=== PATIENT | female | born 1985 | race Caucasian/White ===

== ENCOUNTER 2023-05-05 09:00 | Outpatient (NON) | payer OTHER, SELFPAY | END 2023-05-05 09:01 | disposition home or self-care (01) | PROVIDERS: PCP Family Medicine; Visit Provider Obstetrics & Gynecology | DX: N93.9 Abnormal uterine and vaginal bleeding, unspecified (principal) | CPT/HCPCS: 88305 ==

== ENCOUNTER → 2023-05-07 12:29 | Outpatient (CLI) | payer OTHER, SELFPAY ==
--- NOTE | ~2023-05-07 | MM_ITS ---
EXAMINATION: MM scrn diana implant BI w brenda HISTORY: Screening mammogram TECHNIQUE: Craniocaudal and mediolateral oblique 3-D tomosynthesis images with implant displacement a nd synthetic 2-D images were generated. Craniocaudal and mediolateral oblique views of the breasts wi thout implant displacement were obtained using full field digital mammography. CAD analysis was submi tted and interpreted. COMPARISON: No prior mammogram is available for comparison at this institution. BREAST PARENCHYMAL COMPOSITION: The breasts are extremely dense, which lowers the sensitivity of mamm ography. FINDINGS: Status post bilateral augmentation mammoplasty. There is no evidence of suspicious mass, ca lcification, or architectural distortion to suggest malignancy in either breast. There has been no hamm spicious interval change. IMPRESSION: 1. No mammographic evidence of malignancy. 2. Recommend routine screening mammography in one year. Close correlation with physical examination i s imperative due to the very dense fibroglandular stroma which may obscure masses. Consider supplemen serina screening ultrasound as clinically appropriate. BI-RADS Category 1: Negative Reviewed, dictated and finalized at location A. IMPRESSION: 1. No mammographic evidence of malignancy. 2. Recommend routine screening mammography in one year. Close correlation with physical examination is imperative due to the very dense fibroglandular stroma which may obscure masses. Consider supplemental screening ultrasound as clinica lly appropriate. BI-RADS Category 1: Negative
== END ==
PROVIDERS: PCP Family Medicine; Visit Provider Family Medicine
DX: Z12.31 Encounter for screening mammogram for malignant neoplasm of breast (principal)
CPT/HCPCS: 77063; 77067

== ENCOUNTER 2023-08-20 12:22 | Outpatient (CLI) | payer OTHER, SELFPAY ==
[2023-08-20 13:06] LABS: Hematocrit 39.3 % (37.0-47.0)
== END 2023-08-20 12:23 | disposition home or self-care (01) ==
LOC: ANHSURGERY 12:26
PROVIDERS: PCP Family Medicine; Visit Provider Obstetrics & Gynecology
DX: Z01.818 Encounter for other preprocedural examination (principal); N93.9 Abnormal uterine and vaginal bleeding, unspecified
CPT/HCPCS: 36415; 85014; 85018

== ENCOUNTER 2023-08-28 00:52 | Day surgery (SDC) | payer OTHER, SELFPAY ==
[2023-08-19 15:56] VITALS: BMI 18.9
--- NOTE | 2023-08-19 16:01 | PC.NURSE ---
Report to the Outpatient Waiting Room, entrance under the green pavilion located off [facility], at time _0900_ on date _[id number]_. Planned Procedure Time: _1100_. Time changes happen often and if your time is changed the preop area will call you the afternoon before. - You and your visitor will be asked to self-screen and do not enter if you have any COVID symptoms. - A mask is optional within the hospital at this time. Patients may have clear liquids (water, carbonated beverages, clear teas, apple juice) until 3 hours prior to surgery with a maximum of 20 ounces. - No food from midnight until time of surgery Take the following medications with a SIP of water the morning of surgery: ____None DO NOT STOP ANY OF YOUR OTHER PRESCRIPTION MEDICATIONS PRIOR TO SURGERY ?EXCEPT THE FOLLOWING Medications to discontinue per physician Multivitamin Date to take last nmrc__[phone] Please no make-up, nail tristanian, hairspray, perfume, deodorant, or body powder the day of surgery. No jewelry (including any body piercings) or valuables the day of surgery, leave them at home. Please take a shower or bath the night before, or the morning of, surgery with an antibacterial soap. Wear comfortable, loose fitting clothing. - Jewelry must be removed prior to entering the operating room. Rings and piercings that are not removed may be cut off. - The hospital will not accept responsibility for valuables. - Please leave all valuables, including medications, at home the day of surgery. If you are going home after surgery, a licensed concrete mixing truck driver must drive you home. - NO public transportation without another adult if you receive anesthesia. - We recommend that an adult stay with you for 24 hours following discharge. - We also recommend that you do not drive, make important decision, drink alcoholic beverages, or take any drugs that were not prescribed by your health care provider for at least 24 hours after your discharge time. Follow any additional instructions given to you from your surgeon. If you or anyone in your household have experienced Covid symptoms in the past week, please notify your surgeon or the nurse liaison at the phone number below for possible testing. Telephone instructions given to __Patient___and asked if any additional questions and then verbalized understanding. Patient advised to call surgeon office or pre surgery nurse liaison [phone] if any additional questions.
--- NOTE | 2023-08-26 07:34 | P.HP_ITS ---
H&P: HPI History of Present Illness Date/Time: 08/26/23 07:34 Chief Complaint: Excessive heavy bleeding Narrative: S a 38-year-old female 2 para 2 who is admitted for hysteroscopy dilatation curettage and ablation. Send ultrasound shows no abnormalities home she continues to bleed heavily she would like to discuss with go forward with the hysteroscopy D&C and ablation. She understands this is not a form of control the. Risks and benefits of this procedure reviewed including but not exclusive of , aspiration pneumonia, bleeding, transfusion, perforation injury to bowel, bladder, ureters, or other internal organs with the need for open laparotomy. She received the ACOG handout entitled hysteroscopy and dilatation curettage respectively. She received the handout on Ramona. All qu estions were answered to her satisfaction. She asked to proceed [facility] Surgical History Surgical History H/O breast augmentation H/O exploratory laparotomy Family History Family History Mother Diabetes mellitus Grandparent Hypolipidemia Social History Social History Smoking status: Never smoker Alcohol intake: current Drinks per week: 1 Substance use: never Substance use type: does not use Living arrangements: with family Spiritual care concerns: No Meds Home Medications and Allergies Home Medications Medication Instructions Recorded Confirmed Type multivitamin 1 tablet PO DAILY 06/06/20 08/19/23 History Allergies Allergy/AdvReac Type Severity Reaction Status Date / Time No Known Allergies Allergy Verified 08/19/23 15:54 Exam Const: General: cooperative, healthy appearing and comfortable Nutritional Appearance: average body habitus Orientation/consciousness: oriented to person, oriented to place and oriented to time Resp: Effort & Inspection: normal respiratory effort Cardio: Rate: regular rate Rhythm: regular rhythm Heart sounds: S1 normal heart sound present and S2 normal heart sound present GI: Inspection: normal to inspection : External Female Exam: normal external appearance Speculum Exam - Vagina: normal appearance of the vagina Speculum Exam - Cervix: normal appearance of the cervix Bimanual exam- vagina & uterus: non-tender Bimanual Exam- Adnexa, other: normal adnexae Assessment and Plan Assessment and plan (1) Vaginal bleeding: Code(s): N93.9 - Abnormal uterine and vaginal bleeding, unspecified Status: Acute Plan Hysteroscopy/dilatation curettage/Ramona ablation
--- NOTE | 2023-08-28 06:31 | WPDHPUPDATE1 ---
History and Physical Update Update Date/Time: 08/28/23 06:31 History and Physical has been reviewed, including an updated exam of the patient. There are NO changes in the patient's condition. Risks, benefits, and alternatives have been discussed and questions answered. Patient agrees to proceed with procedure.
[2023-08-28] MEDS: ACETAMINOPHEN 500 MG TABLET 1000 MG PO (09:30)
--- NOTE | 2023-08-28 09:36 | P.PNAN_ITS ---
Anes - Initial Pre Proc Eval Procedure: Operation Date: 08/28/23 11:00 Proposed Procedures p Hysteroscopy, Dilation and Curettage, Ramona Endometrial Ablation - Manoj Portillo MD Date/Time: 08/28/23 09:36 Surgeon: Manoj Portillo MD Pre Op Diagnosis: excessive bleeding Patient Data Age: 38 Gender: F Height: 1.63 m Weight: 50 kg Allergies Allergy/AdvReac Type Severity Reaction Status Date / Time No Known Allergies Allergy Verified 08/28/23 09:24 Home Medications Medication Instructions Recorded Confirmed Type multivitamin 1 tablet PO DAILY 06/06/20 08/28/23 History hydrocodone 5 mg-acetaminophen 325 1 tablet PO Q4H PRN pain #14 tabs 08/28/23 Rx mg tablet Patient hx anesthesia problems: none Family hx anesthesia problems: none Results Review: All pre-operative results and documents have been reviewed as part of the pre- operative evaluation. [facility] Surgical History Surgical History (Updated 08/28/23 @ 09:36 by Manoj Verduzco MD) H/O breast augmentation H/O exploratory laparotomy History of D&C Family History Family History Mother Diabetes mellitus Grandparent Hypolipidemia Social History Social History Smoking status: Never smoker Alcohol intake: current Drinks per week: 1 Substance use: never Substance use type: does not use Living arrangements: with family Spiritual care concerns: No Anes - Eval Final PreProcedure Day of Procedure 08/28/23 09:36 Patient weight: normal Heart: regular rate and rhythm Lungs: clear to auscultation Airway: Mallampati scale class II Neurological: alert and oriented Last oral intake: >/= 8 hours ASA classification: I Emergent: no Anesthetic plan: proceed Anesthesia type and monitoring: general GIVS and standard monitoring Results Review: All pre-operative results and documents have been reviewed as part of the pre- operative evaluation. Informed Consent: The patient's anesthetic plan and its attendant risks and benefits were discussed with the patient/family/POA. Questions were solicited and answers provided to the satisfaction of the patient/family/POA.
[2023-08-28] MEDS: LACTATED RINGERS 1,000 ML 30 ML IV CONT (09:44)
[2023-08-28 09:45] VITALS: BP 111/78; PULSE 71; RESP 16; TEMP 37.1; O2SAT 100
[2023-08-28] MEDS: SCOPOLAMINE 1.5 MG PATCH TRANSDERM (09:48)
[2023-08-28] MEDS: KETOROLAC 30 MG/ML VIAL (*BKC) IV PUSH (10:37)
[2023-08-28] MEDS: LIDOCAINE HCL 1% LOCAL INJ 20 ML VIAL 10 ML INFILTRATE (10:42)
--- NOTE | 2023-08-28 10:50 | W.PM.PROC2 ---
Procedure Note - Detailed Date of Procedure 08/28/23 Pre-op Diagnosis excessive bleeding Post-op Diagnosis Same Procedure Performed Hysteroscopy/dilatation curettage/Ramona ablation Surgeon Manoj Portillo MD Anesthesia MAC and Local Indications Is a 38-year-old female with excessive heavy bleeding refractory to medical therapy Findings Uterus sounded 9cm. Thick endometrial tissue was seen. Each fallopian tube os could be seen was within limits. Description of Procedure Patient was prepped draped in the normal sterile fashion placed in the dorsal position. Under excellent IV sedation weighted speculum placed posterior. Anterior lip of the cervix grasped with single-tooth 2 5cc% xylocaine anesthesia placed at 2:48 a.m. 10 cervix. Uterus sounded to9.5cm. Serial dilatation with fragmented dilators performed followed by passage of a V-hysteroscope. Normal saline was used as visualizing medium. Thick endometrial tissue was seen. Each fallopian tube os could be seen but no definitive abnormality seen uterus was then scraped over the entire 360? until a good grating sound was heard. The instruments were withdrawn and the Ramona instrument placed at the appropriate depth. This was burned for 120seconds. The instruments removed the patient worked tolerated the procedure well. Blood loss estimated 5cc. All sponge, needle, instrument counts were correct. Estimated Blood Loss 5 Drains No Packing No Pathology Yes Complications No immediate complications Condition Stable Disposition PACU
[2023-08-28 10:53] VITALS: BP 95/57; PULSE 68; RESP 16; O2SAT 100
[2023-08-28 11:00] VITALS: BP 102/61; PULSE 70; RESP 16
[2023-08-28 11:14] VITALS: BP 116/75; PULSE 60; RESP 16; O2SAT 100
[2023-08-28 11:30] VITALS: BP 103/63; PULSE 65; RESP 16
== END 2023-08-28 11:35 | disposition home or self-care (01) ==
PROVIDERS: PCP Family Medicine; Visit Provider Obstetrics & Gynecology
PROC: 0U5B8ZZ Destruction of Endometrium, Via Natural or Artificial Opening Endoscopic (ICD-10-PCS; CPT 58563; principal; 2023-08-28 11:00)
DX: N93.9 Abnormal uterine and vaginal bleeding, unspecified (principal)
CPT/HCPCS: 58563; 36415; 85014; 85018; 88305; A9270; J1885; J2250; J2405; J2704; J3010; J7120

== ENCOUNTER 2024-07-08 12:50 | Outpatient (CLI) | payer OTHER, SELFPAY ==
--- NOTE | ~2024-07-08 | MM_ITS ---
EXAMINATION: MM scrn diana implant BI w brenda HISTORY: Screening mammogram TECHNIQUE: Craniocaudal and mediolateral oblique 3-D tomosynthesis images with implant displacement a nd synthetic 2-D images were generated. Craniocaudal and mediolateral oblique views of the breasts wi thout implant displacement were obtained using full field digital mammography. CAD analysis was submi tted and interpreted. COMPARISON: 05/07/2023 BREAST PARENCHYMAL COMPOSITION: Dense: The breasts are extremely dense, which lowers the sensitivity of mammography. FINDINGS: There is no evidence of suspicious mass, calcification, or architectural distortion to sugg est malignancy in either breast. There has been no suspicious interval change. IMPRESSION: 1. No mammographic evidence of malignancy. 2. Recommend routine screening mammography in one year. BI-RADS Category 1: Negative Reviewed, dictated and finalized at location B.
== END 2024-07-08 12:51 ==
LOC: MICIMG 12:50
PROVIDERS: PCP Family Medicine; Visit Provider Family Medicine
DX: Z12.31 Encounter for screening mammogram for malignant neoplasm of breast (principal)
CPT/HCPCS: 77063; 77067

== ENCOUNTER 2025-07-27 08:33 | Outpatient (CLI) | payer OTHER, SELFPAY ==
--- NOTE | ~2025-07-27 | MM_ITS ---
EXAMINATION: MM scrn diana implant BI w brenda HISTORY: Screening TECHNIQUE: Craniocaudal and mediolateral oblique 3-D tomosynthesis images were obtained and synthetic 2-D images were generated. CAD analysis was submitted and interpreted. Implant displacement views were obtained. COMPARISON: Mammograms from 07/08/2024 and 05/07/2023 BREAST PARENCHYMAL COMPOSITION: The breasts are extremely dense, which lowers the sensitivity of mammography. FINDINGS: There is no evidence of suspicious mass, calcification, or architectural distortion to suggest malignancy. There has been no suspicious interval change. Grossly stable bilateral breast implants. IMPRESSION: 1. No mammographic evidence of malignancy. Recommend routine screening mammography in one year. BI-RADS Category 2: Benign finding(s) Reviewed, dictated and finalized at location Q. IMPRESSION: 1. No mammographic evidence of malignancy. Recommend routine screening mammogra phy in one year. BI-RADS Category 2: Benign finding(s)
--- OUTSIDE RECORDS SUMMARY | 2025-07-27 08:39 | XMS_ITS | Patient Health Record ---
Author Organization [facility] Address [address] [place], [place] [id number] Support Name Relationship Address Phone JOESPH MCGOVERN Emergency Contact Unknown ANDRES MCGOVERN Guarantor Unknown [phone] Reason For Referral No Information Plan Of Treatment No Information Insurance Providers Payer Name Payer Address Payer Phone Subscriber Number Group Number Insured Name Patient Relationship to Insured Coverage Start Date Coverage End Date [facility] [address] [address] [place] [address] [id number] JOESPH MCGOVERN Spouse - patient is the spouse of the insured
--- OUTSIDE RECORDS SUMMARY | 2025-07-27 08:39 | XMS_ITS | Clinical Summary ---
Author Organization [facility] [place] Address [address] [place] [address] Phone Care Team Providers Care Planing Machine Operator Name Role Phone Sharon Quintero DO Primary Care Provider Allergies No known active allergies Medications multivitamin (DAILY-[place]) tablet Take 1 Tablet by mouth daily. Active escitalopram oxalate (LEXAPRO) 20 mg tabletIndications:A nxiety state Take 1 Tablet (20 mg) by mouth daily Take 1/2 tab for 1 week then increase to full tablet. 90 Tablet 9 Active traZODone (DESYREL) 50 mg tabletIndications:I nsomnia, unspecified type Take 1 Tablet (50 mg) by mouth nightly as needed for Insomnia. 30 Tablet 9 Active neomycin-polymyxin- hydrocortisone (CORTISPORIN) 3.5-10,000-10 mg-unit-mg/mL suspensionIndicatio ns:Unspecified conjunctivitis Instill 2 Drops into affected eye(s) every 4 hours. 7.5 mL 01/27/2020 9:43 AM FRONT OFFICE MEDICAL ASSISTANT 0 Active meloxicam (MOBIC) 15 mg tablet Take 1 Tablet (15 mg) by mouth daily. 30 Tablet 3 07/15/2022 6:01 PM CDT 2 Active HYDROcodone-acetami nophen (NORCO) 5-325 mg tablet Take 1 Tablet by mouth every 4 hours as needed. Max Daily Amount: 6 Tablets 18 Tablet 03/13/2023 1:09 PM CDT 3 Active HYDROcodone-acetami nophen (NORCO) 5-325 mg tablet Take 1 tablet by mouth every 8 hours as needed for pain 9 Tablet 03/08/2025 10:50 AM CDT 5 Active lidocaine-prilocain e (EMLA) 2.5-2.5 % Cream Apply 3 times daily to perianal area 30 Gram 1 03/08/2025 10:50 AM CDT 5 Active Active Problems Problem Noted Date Diagnosed Date Positive AMAURI (antinuclear antibody) 07/01/2021 Overview (07/01/2021): Seen by [facility] rheum jun 2021 (Emily Pereira MD ); Will fup every 6mo. Bilateral tinnitus 03/07/2020 Overview (03/07/2020): F/b Dr. Thompson Fasciculations 12/21/2019 Overview (07/23/2021): eval'd by dr evans at [facility]. 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 Acne 12/25/2011 Encounters Date Type Department Care Team Description 06/27/2025 External Device Data [facility] ABSTRACTION Provider, Abstract 06/07/2025 External Device Data [facility] ABSTRACTION Provider, Abstract 06/07/2025 External Device Data [facility] ABSTRACTION Provider, Abstract 05/09/2025 External Device Data [facility] ABSTRACTION Provider, Abstract from Last 3 Months Immunizations Immunization Administration Dates Next Due (ADACEL/BOOSTRIX)(10 YR UP) TDAP VACCINE, 0.5ML, IM 03/24/2017,09/21/2014,12/25/2011,11/23 (PFIZER)(12 YR UP) COVID-19 VACCINE - EMERGENCY USE AUTHORIZATION, MRNA, [id number]) 30 MCG/0.3 ML IM SUSP 12/01/2020,11/09/2020 INFLUENZA VACCINE QUADRIVALE NT 3 YR UP PF IM 08/19/2016,08/07/2015,08/27/2014 Influenza Seasonal Unspecifi ed Formulation IM 08/24/2024,08/25/2023,08/26/2022,08/01,08/19/2020,08/19/2019,08/07/2018 ,07/24/2018,08/22/2017,08/18/2013,07/25,08/18/2011 08/18/2012 Family History Medical History Relation Name Comments Healthy Father Healthy Mother Other Sister ptsd Relation Name Status Comments Father Alive Mother Alive Sister Alive Social History Tobacco Use Types Packs/Day Years Used Date Smoking Tobacco: Never Smokeless Tobacco: Never Alcohol Use Standard Drinks/Week Comments No 0 (1 standard drink = 0.6 oz pur e alcohol) Comments No Sex and Gender Information Value Date Recorded Sex Assigned at Not on file Legal Sex Female 5:57 AM FRONT OFFICE MEDICAL ASSISTANT Gender Identity Not on file Sexual Orientation Not on file Occupation Industry Job Start Date Job End Date Not on file Not on file Not on file Not on file Last Filed Vital Signs Vital Sign Reading Time Taken Comments Blood Pressure 98/64 06/16/2019 10:46 AM CDT Pulse 74 06/16/2019 10:46 AM CDT Temperature 36.7 C (98.1 F) 06/16/2019 10:46 AM CDT Respiratory Rate 16 06/16/2019 10:46 AM CDT Oxygen Saturation 99% 06/16/2019 10:46 AM CDT Inhaled Oxygen Concentration - - Weight 50.8 kg (112 lb) 06/16/2019 10:46 AM CDT Height 164.5 cm (5' 4.75) 06/16/2019 10:46 AM C DT Body Mass Index 18.78 06/16/2019 10:46 AM CDT Plan of Treatment Health Maintenance Due Date Last Done Comments HEPATITIS B VACCINES (1 of 3 - 19+ 3-dose series) 2002 HPV VACCINES (2 - 3-dose SCD M series) 08/15/2020 07/18/2020 PAP SMEAR 08/25/2021 08/25/2018, 10/0 01/2018, 07/10/2017, Additional history exists BREAST CANCER SCREENING 2023 CERVICAL CANCER SCREENING 08/25/2023 HPV/Cotest (21-29) 08/25/2023 08/25/2018, 0 07/10/2017, 10/31/2016, Additional history exists HPV/Cotest (30-65) 08/25/2023 08/25/2018, 0 07/10/2017, 10/31/2016, Additional history exists INFLUENZA VACCINE (#1) 2025 4, 08/25/2023, 08/26/2022, Additional history exists COVID-19 Vaccine (3 - 2024-2 6 season) 2025 12/01/2020, 11/09/2020 DTAP/TDAP/TD VACCINES (5 - T d or Tdap) 03/24/2027 03/24/2017, 09/21/2014, 12/25/2011, Additional history exists Medical Devices Implanted Type Area Manual Tester Device Identifier Shelf Expiration Date Model / Serial / Lot Sealant Floseal W/ Adptr 10ml [id number] - [id number] Implanted:Qt y: 1 on 07/19/2016 by Octavio Cole MD at [facility] Sealant N/A: Abdomen [employer] [id number] 10/22/2017 [id number] / / [id number] Procedures Procedure Name Priority Date/Time Associated Diagnosis Comments HPV HIGH RISK DETECTION Routine 08/25/2018 1:59 PM CDT Pap smear, low-risk CERV/VAG CYTO AGE BASED SCREEN PAP Routine 08/25/2018 1:59 PM CDT Pap smear, low-risk from Last 3 Months or Most Recently Relevant to Health Maintenance Results * HPV HIGH RISK DETECTION (08/25/2018 1:59 PM CDT) HPV E6/E7 Not Detected Not Detected 09/01/2018 9:20 AM CDT [facility] Comment: This test was performed using the APTIMA HPV Assay ([employer] This assay detects E6/E7 viral messenger RNA (mRNA) from 14 high-risk HPV types (16,18,31,33,35,39,45,51,52,56,58,59,66,68). The analytical performance characteristics of this assay have been determined by [facility]. The modifications have not been cleared or approved by the FDA. This assay has been validated pursuant to the CLIA regulations and is used for clinical purposes. Genital SWAB OF ENDOCERVIX / Unknown Collection / Unknown 08/25/2018 1:59 PM CDT 08/25/2018 9:24 PM CDT Narrative [facility] - 09/01/2018 9:20 AM CDT Performing Organization Information: Site ID: [place] Name: [facility] Address: [address] [place] [address] Director: Charles Cerrato D.O., MPH us Michelle Banegas MD PATHOLOGY/CYTOLOGY ORDERABLE S Final Result Performing Organization Address City/State/[facility] Co de Phone Number [facility] * CERV/VAG CYTO AGE BASED SCREEN PAP (08/25/2018 1:59 PM CDT) COMMENT (PAP): SEE COMMENT 8 9:20 AM CDT [facility] Comment: This order for age-based cervical cancer and STI screening follows ACOG guidelines(PB 168, 140, CDD686). See individual assays for performing site location. Genital SWAB OF ENDOCERVIX / Unknown Collection / Unknown 08/25/2018 1:59 PM CDT 08/25/2018 9:24 PM CDT Narrative [facility] - 09/01/2018 9:20 AM CDT Performing Organization Information: Site ID: [place] Name: [facility] Address: [address] [place] [address] Director: Charles Cerrato D.O., MPH us Michelle Banegas MD PATHOLOGY/CYTOLOGY ORDERABLE S Final Result [facility] from Last 3 Months or Most Recently Relevant to Health Maintenance Insurance [facility] OPTIONS PPO [id number] RX [employer] RX [employer]KS PLANS (INTERNAL) [facility] RX [employer]ANS (INTERNAL) [facility] Advance Directives For more information, please contact: [phone] * Full Code (Latest Code Status on File) Date Activated Date Inactivated Comments 05/22/2017 6:41 PM 05/24/2017 2:31 PM * Full Code Date Activated Date Inactivated Comments 05/22/2017 8:44 AM 05/22/2017 6:41 PM * Full Code Date Activated Date Inactivated Comments 10/31/2014 3:16 PM 11/02/2014 1:10 PM * Full Code Date Activated Date Inactivated Comments 10/31/2014 8:19 AM 10/31/2014 3:16 PM Care Teams Planing Machine Operator Relationship Specialty Start Date End Date Sharon Quintero DO PCP - General Internal Medicine 01/14/13
--- OUTSIDE RECORDS SUMMARY | 2025-07-27 08:39 | XMS_ITS | Clinical Summary ---
Author Organization [facility] Address [address] [place] [address] Care Team Providers Care Assistant Professor Of Music Name Role Phone Unavailable Primary Care Provider Unavailabl e Source Comments [facility],non-owned Affiliates and Associated Physician Practices is amultiple site organization consisting of ambulatory clinics and hospital sitesin [place], [place], [place]. This disclosure is being madepursuant to the Care Everywhere program and may not contain all information available regarding this patient. Last updated 18.[facility] Social History Tobacco Use Types Packs/Day Years Used Date Smoking Tobacco: Never Assessed Comments Unknown Sex and Gender Information Value Date Recorded Sex Assigned at Not on file Legal Sex Female 3:41 PM CDT Gender Identity Not on file Sexual Orientation Not on file Plan of Treatment Health Maintenance Due Date Last Done Comments LIPID TESTING 1983 MAMMOGRAM 1983 HIV SCREENING 1998 HEPATITIS C SCREENING 12/28/2000 DTAP/TDAP/TD VACCINES (1 - Tdap) 2002 HEPATITIS B VACCINE (1 of 3 - 19+ 3-dose series) 2002 PAP SMEAR 2004 HPV VACCINE (1 - 3-dose SCDM series) 2010 COVID-19 VACCINE ( - 2023- season) 2024 DEPRESSION SCREENING 11/23/2024 INFLUENZA VACCINE (#1) 2025 8, 07/24/2018, 08/22/2017, Additional history exists ZOSTER VACCINE (1 of 2) 2033 HIB VACCINE Aged Out No longer eligi ble based on patient's age to complete this topic MENINGOCOCCAL (Group B) VACCINE SHARED DECISION-MAKING Aged Out No longer eligible based on patient's age to complete this topic MENINGOCOCCAL GROUPS A/C/Y/W VACCINE Aged Out No longer eligible based on patient's age to complete this topic PNEUMOCOCCAL VACCINE Aged Out No long er eligible based on patient's age to complete this topic Insurance [facility] * Guarantor: Andres Babb Account Type Relation to Patient Date of Phone Billing Address Personal/Family Spouse [address] [facility] [address] [place] [phone] [facility] * Guarantor: ANDRES BABB Account Type Relation to Patient Date of Phone Billing Address Personal/Family Spouse [address] [facility] [place] [phone] [facility]
--- OUTSIDE RECORDS SUMMARY | 2025-07-27 08:39 | XMS_ITS | Clinical Summary ---
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 Mariel Babb is not up to date on screening tests. She is in need of hepatitis C and B screening and Cholesterol screening. She is not up to date on needed preventative vaccinations; She is in need of Covid-19 (booster). We discussed healthy lifestyle habits, educational material has been given. Medications reviewed, changes documented as per the medical record and discussed with patient along with risks vs benefits. Return in 1 year Assessment & Plan (02/24/2023 9:19 AM CDT): A(n) yearly well adult visit has been performed today. Mariel Babb is not up to date on screening tests. She is in need of Breast cancer screening and Cholesterol screening. She is up to date on needed preventative vaccinations. We discussed healthy lifestyle habits, educational material has been given. Medications reviewed, changes documented as per the medical record and discussed with patient along with risks vs benefits. 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 Mariel Babb is up to date on screening tests. She is in need of None- no screening indicated at this time- these have been ordered. She is not up to date on needed preventative vaccinations; She is in need of Covid-19 (booster). These have been ordered/arranged unless otherwise indicated. Will see back for formal, in-person exam in 1 month Labs as ordered Positive AMAURI (antinuclear antibody) 07/01/2021 Overview (01/09/2022): Seen by [facility] rheum jun 2021 (Emily Pereira MD ); Will fup every 6mo. Paresthesia of skin 06/11/2021 Assessment & Plan (06/11/2021 10:55 AM CDT): Has new symptoms of transient paresthesias in arms and constant vibration sensation in right arm not associated with visible muscle twitching. Exam remains normal Possible small fiber neuropathy given multiple transient sensory changes and muscle symptoms, although also possible she has BFS as previously discussed and positional nerve compression during sleep (as symptoms have only occurred during sleep). She asks about M.S. and I reviewed that her symptoms lasting minutes would not be typical of M.S. and her exam is normal which is reassuring. Given bilateral arm symptoms out of sleep, could consider Cspine imaging, but would only pursue this if symptoms worsening/more frequent or new symptom. Given fasciculations, which would not be an M.S. symptoms, I suggested proceeding with EMG/NCS to complete evaluation given her continued concerns for more serious etiology. Will also check lab work for causes of small fiber neuropathy. I discussed that medications like gabapentin could be used to manage symptoms, although given she has not had symptoms in several weeks, will hold treatment unless worsening/more problematic. RTC in 3 months to reassess Bilateral tinnitus 03/07/2020 Overview (01/09/2022): F/b Dr. 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 CK/Aldolase previously normal, would like to proceed with EMG/NCS to rule out concerning findings/cause. Assessment & Plan (12/21/2019 10:04 AM EXHAUST EMISSIONS INSPECTOR): Have been occurring less frequently in last few months, still notices a few times daily but nothing like the 30-40 times daily in past. No new symptoms. Exam unchanged, again provided reassurance. She asks about need for indefinite buspar and I told her it could be reasonable to wean and see if this is something that she no longer needs or is something she might benefit from at least continued short term use. She is happy to return as needed in future if change and will call if concern. Assessment & Plan (09/21/2019 8:33 AM CDT): 34 year old woman who presents with fasciculations that have been going on to various severity for 4 months. They are less than they had been but remain generalized and fairly frequent. Her neurologic examination is normal and I reassured her she had no signs of ALS, which had been her fear. She is also concerned this is a sign she is going 'crazy' but does not feel anxious (other than related to medical concerns these symptoms have caused). I did explained benign fasciculations and that this is separate from anxiety disorder (although stress and anxiety can certainly influence). I reviewed additional testing, including muscle enzyme testing and EMG/NCS as potential options. At this time, she is comfortable proceeding with CK/aldolase and holding EMG/NCS unless symptoms worsen/new symptoms develop. In the interim, she has already eliminated caffeine and I encouraged her to increase fluid intake and exercise. She has been on buspar about 1 month which she does feel has potentially helped some. I suggested she continue this for the time being but if she is comfortable things are stable/less severe at follow up in a few months, would likely suggest she try eliminating this given lack of other problematic anxiety. 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 Acne 12/25/2011 Resolved Problems Problem Noted Date Diagnosed Date Resolved Date Normal labor 05/22/2017 01/09/2022 Hemoperitoneum 07/19/2016 01/09/2022 Encounters Date Type Department Care Team Description 05/11/2025 Results Follow-Up [facility] at [address] [phone] Nabil Chacon MD CBC with auto differential, Comprehensive metabolic panel, Lipid panel, Additional followed-up results: 3 04/28/2025 8:15 AM CDT Lab [facility] at [address] [phone] Screening for lipoid disorders [Z13.220] (Primary Dx); Screening for thyroid disorder [Z13.29]; Routine general medical examination at a health care facility [Z00.00] 04/28/2025 8:11 AM CDT - 04/28/2025 11:59 [place] [address] Well adult exam; Screening, lipid; Screening for thyroid disorder Discharge Disposition: Discharge to home or self care 04/27/2025 2:30 PM CDT Office Visit [facility] at [address] [phone] Nabil Chacon MD Well adult exam (Primary Dx); Screening for thyroid disorder; Screening, lipid from Last 3 Months Immunizations Immunization Administration Dates Next Due HPV, Quadrivalent 07/18/2020 HPV9 01/22/2021 Influenza, Quadrivalent, Spl it, Preservative Free, Intramuscular 08/19/2016,08/07/2015,08/27/2014 Influenza, Trivalent, IM (MDV) 3,08/26/2022,08/01/2021,08/19,08/19/2019,08/07/2018,07/24/2018 ,08/22/2017,08/18/2013,08/17/2012,07/25 Influenza, Unspecified 08/17/2022,08/12/2021 Pfizer SARS-CoV-2 Monovalent Vaccination (12+ Yrs) PURPLE 12/01/2020,11/09/2020 Tdap 03/24/2017, 4,12/25/2011,11/23 Surgical History Surgery Date Site/Laterality Comments LAPAROSCOPY 11/23/2015 - 11/22/2016 exploratory abdominal AUGMENTATION MAMMOPLASTY 01/21/2019 - 02/20/2019 Bilatera l Silicone breast implants LASIK 11/23/2002 - 11/22/2003 Bilateral BREAST SURGERY 01/2019 COLONOSCOPY 2010 Medical History Medical History Date Comments Rosacea In vitro fertilization x2 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 board assembler (2021) Holliday's neuroma of right foot Family History Medical History Relation Name Comments Coronary artery disease Father estr anged Diabetes Maternal Grandfather Grandfather Heart disease Maternal Grandfather Grandfather Diabetes Maternal Grandmother Jaquez Lupus Maternal Grandmother Jaquez Diabetes Mother Dorothea Obesity Mother Dorothea Heart disease Mother's Brother Jonathon and michael No Known Problems Paternal Grandfather Lupus Paternal Grandmother Depression Sister Belinda Diabetes Sister Belinda Drug abuse Sister Belinda Lupus Sister Belinda Substance Abuse Sister Belinda Relation Name Status Comments Father Alive Maternal Grandfather Grandfather Maternal Grandmother Jaquez Mother Dorothea Alive Mother's Brother Cielo Paternal Grandfather Paternal Grandmother Sister Belinda Alive Social History Tobacco Use Types Packs/Day Years Used Date Smoking Tobacco: Never Smokeless Tobacco: Never Tobacco Cessation:Counseling Given: Not Answered Alcohol Use Standard Drinks/Week Comments Yes 0 (1 standard drink = 0.6 oz pur e alcohol) AUDIT-C Answer Date Recorded Q1: How often do you have a drink containing alc ohol? 2-3 times a week 02/24/2023 Q2: How many drinks containi ng alcohol do you have on a typical day when you are drinking? 1 or 2 02/24/2023 Q3: How often do you have si x or more drinks on one occasion? Less than monthly 02/24/2023 PHQ-2 Answer Date Recorded PHQ-2 Total Score (If total score is 3 or more points, staff should administer the PHQ-9) 0 04/27/2025 Exercise Vital Sign Answer Date Recorde d On average, how many days pe r week do you engage in moderate to strenuous exercise (like a brisk walk)? 4 days 01/09/2022 On average, how many minutes do you engage in exercise at this level? 40 min 01/09/2022 Education Answer Date Recorded What is the highest level of school you have completed or the highest degree you have received? 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 file 01/25/2025 Not on file Obstetrics History Last Filed Vital Signs Vital Sign Reading Time Taken Comments Blood Pressure 122/72 04/27/2025 2:17 PM CDT Pulse 77 04/27/2025 2:17 PM CDT Temperature 36.6 C (97.8 F) 04/27/2025 2:17 PM CDT Respiratory Rate 18 04/27/2025 2:17 PM CDT Oxygen Saturation 99% 04/27/2025 2:17 PM CDT Inhaled Oxygen Concentration - - Weight 54 kg (119 lb) 04/27/2025 2:17 PM CDT Height 162.6 cm (5' 4) 04/27/2025 2:17 PM CDT Body Mass Index 20.43 04/27/2025 2:17 PM CDT Plan of Treatment Health Maintenance Due Date Last Done Comments Cervical Cancer Screening 08/25/2019 08/25/2018 HPV Vaccines (3 - 3-dose SCDM series) 04/16/2021 01/22/2021, 07/18/2020 Breast Cancer Screening-Mammogram 07/08/2025 07/08/2024 Influenza Vaccine (#1) 2025 , 08/23/2024, 08/25/2023, Additional history exists Covid-19 Vaccine ( season) 2026 12/01/2020, 11/09/2020 Postponed from 07/24/2024 (Patient declined, but will receive in the future) Depression Screening 04/27/2026 04/27/2025, 03/02/2024, 02/24/2023, Additional history exists Regular Well Visit/Exam 18-64 04/27/2026 04/27/2025, 03/02/2024, 02/24/2023, Additional history exists DTaP/Tdap/Td Vaccine (5 - Td or Tdap) 03/24/2027 03/24/2017, 09/21/2014, 12/25/2011, Additional history exists Hepatitis B Screening Completed 03/02/2024 Hepatitis C Screening Completed 03/02/2024 Pneumococcal vaccine <65 Aged Out No longer eligible based on patient's age to complete this topic Varicella Vaccines Discontinued Procedures Procedure Name Priority Date/Time Associated Diagnosis Comments EGFR Routine 04/28/2025 8:11 AM CDT Well adult exam DIFFERENTIAL AUTO Routine 04/28/2025 8:1 1 AM CDT Well adult exam THYROID FUNCTION CASCADE Routine 04/28/2025 8:11 AM CDT Screening for thyroid disorder LIPID PANEL Routine 04/28/2025 8:11 AM CDT Screening, lipid COMPREHENSIVE METABOLIC PANEL Routine 04/28/2025 8:11 AM CDT Well adult exam CBC WITH AUTO DIFFERENTIAL Routine 04/28/2025 8:11 AM CDT Well adult exam HM MAMMOGRAPHY Routine 07/08/2024 2:11 PM CDT HEPATITIS C ANTIBODY Routine 03/02/2024 12:00 AM CDT Need for hepatitis C screening test HM PAP SMEAR WITH HPV Routine 08/25/2018 from Last 3 Months or Most Recently Relevant to Health Maintenance Results * eGFR (04/28/2025 8:11 AM CDT) eGFR >90 >=60 mL/min/1. 73 m2 Comment: Interpretive Data Reference Interval Normal >/= 90 mL/min/1.73m2 Mildly decreased* 60 - 89 mL/min/1.73m2 Mildly to moderately decreased 45 - 59 mL/min/1.73m2 Moderately to severely decreased 30 - 44 mL/min/1.73m2 Severely decreased 15 - 29 mL/min/1.73m2 Kidney Failure < 15 mL/min/1.73m2 *Relative to young adult level Estimated glomerular filtration rate is determined by the 2020 CKD-EPI equation recommended by the National Kidney Foundation (A Unifying Approach to GFR Estimation: Recommendations of the NKF-ASK Task Force on Reassessing the Inclusion of Race in Diagnosing Kidney Disease, JASN 2020). The CKD-EPI equation should not be used for patients with unstable renal function and has not been validated in children and those over 70. Current interpretive data was last reviewed 2021. Blood 04/28/2025 8:11 AM CDT 04/28/2025 3:18 PM CDT us Nabil Chacon MD LAB BLOOD ORDERABLES Final Result [facility] [address] Department [place] [address] * Differential, auto (04/28/2025 8:11 AM CDT) Neutrophil abs 2.60 1.50 - 6.50 K/cumm Imm gran abs 0.01 0.00 - 0.10 K/cumm [facility] Lymphocyte abs 1.62 0.80 - 3.30 K/cumm [facility] Monocyte abs 0.41 0.20 - 0.80 K/cumm [facility] Eosinophil abs 0.04 0.00 - 0.50 K/cumm [facility] Basophil abs 0.03 0.00 - 0.10 K/cumm [facility] Neutrophil pct 55.3 % [facility] Comment: Interpretive Data Percent cell count reference ranges are not reported, since discordance with absolute values may lead to misinterpretation of CBC data. Current Interpretive Data was last revised on 2018. Imm gran pct 0.2 % [facility] Comment: Interpretive Data Percent cell count reference ranges are not reported, since discordance with absolute values may lead to misinterpretation of CBC data. Current Interpretive Data was last revised on 2018. Lymphocyte pct 34.4 % [facility] Comment: Interpretive Data Percent cell count reference ranges are not reported, since discordance with absolute values may lead to misinterpretation of CBC data. Current Interpretive Data was last revised on 2018. Monocyte pct 8.7 % [facility] Comment: Interpretive Data Percent cell count reference ranges are not reported, since discordance with absolute values may lead to misinterpretation of CBC data. Current Interpretive Data was last revised on 2018. Eosinophil pct 0.8 % [facility] Comment: Interpretive Data Percent cell count reference ranges are not reported, since discordance with absolute values may lead to misinterpretation of CBC data. Current Interpretive Data was last revised on 2018. Basophil pct 0.6 % [facility] Comment: Interpretive Data Percent cell count reference ranges are not reported, since discordance with absolute values may lead to misinterpretation of CBC data. Current Interpretive Data was last revised on 2018. Blood 04/28/2025 8:11 AM CDT 04/28/2025 2:48 PM CDT us Nabil Chacon MD LAB BLOOD ORDERABLES Final Result [facility] [address] Department of Laboratories [place], [place] [id number] * Thyroid Function [place] (04/28/2025 8:11 AM CDT) TSH 3.33 0.30 - 4.20 mcIUnit/mL Blood 04/28/2025 8:11 AM CDT 04/28/2025 2:48 PM CDT Nabil Chacon MD LAB BLOOD ORDERABLES Final Result Performing Organization Address City/[facility]/ZIP Co de Phone Number [facility] [address] Department of [employer] [place] [address] * (ABNORMAL) CBC with auto differential (04/28/2025 8:11 AM CDT) WBC 4.71 3.80 - 9.90 K/cumm Hgb 12.9 11.9 - 15.5 g/dL [facility] Hct 40.0 35.6 - 45.5 % [facility] Plt 235 150 - 400 K/cumm [facility] MPV 12.0 9.1 - 12.3 fL [facility] RBC 4.10 3.90 - 5.20 M/cumm [facility] MCV 97.6(H) 81.3 - 96.4 fL [facility] MCH 31.5 27.1 - 33.3 pg [facility] MCHC 32.3 32.3 - 35.7 g/dL [facility] RDW CV 11.9 11.1 - 14.9 % [facility] RDW SD 43.1 35.7 - 48.1 fL [facility] NRBC abs 0.00 0.00 - 0.01 K/cumm [facility] Blood 04/28/2025 8:11 AM CDT 04/28/2025 2:48 PM CDT Nabil Chacon MD LAB BLOOD ORDERABLES Final Result [facility] [address] Department of [employer] [place] [address] * Lipid panel (04/28/2025 8:11 AM CDT) Cholesterol 179 30 - 199 mg/dL Comment: Interpretive Data Ages < or = 19 years Acceptable: <170 mg/dL Borderline high: 170-199 mg/dL High: >or= 200 mg/dL Ages > or = 20 years Desirable: <200 mg/dL Borderline high: 200-239 mg/dL High: >or= 240 mg/dL Literature References: 1. Expert Panel on Integrated Guidelines for Cardiovascular Health and Risk Reduction in Children and Adolescents. Pediatrics 2011;128:S213 2. NCEP Expert Panel. Circulation 2004;110:227 Current Interpretive Data was last revised on 2018. Triglycerides 53 <=149 mg/dL [facility] Comment: Interpretive Data Ages < or = 9 years Acceptable: <75 mg/dL Borderline high: 75-99 mg/dL High: >or= 100 mg/dL Ages 10 to 20 years Acceptable: <90 mg/dL Borderline high: 90-129 mg/dL High: >or= 130 mg/dL Ages > or = 20 years Desirable: <150 mg/dL Borderline high: 150-199 mg/dL High: 200-499 mg/dL Very high: >or= 499 mg/dL Literature References: 1. Expert Panel on Integrated Guidelines for Cardiovascular Health and Risk Reduction in Children and Adolescents. Pediatrics 2011;128:S213 2. NCEP Expert Panel. Circulation 2004;110:227 Current Interpretive Data was last revised on 2018. HDL 76 >=40 mg/dL [facility] Comment: Interpretive Data Ages < or = 19 years Acceptable: >45 mg/dL Borderline low: 40-45 mg/dL Low: <40 mg/dL Ages > or = 20 years Desirable: >or= 60 mg/dL Low: <40 mg/dL Literature References: 1. Expert Panel on Integrated Guidelines for Cardiovascular Health and Risk Reduction in Children and Adolescents. Pediatrics 2011;128:S213 2. NCEP Expert Panel. Circulation 2003;110:227 Current Interpretive Data was last revised on 2018. LDL, calculated 93 <=129 mg/dL [facility] Comment: Interpretive Data Ages < or = 19 years Acceptable: <110 mg/dL Borderline high: 110-129 mg/dL High: >or= 130 mg/dL Ages > or = 20 years Optimal: <100 mg/dL Near optimal: 100-129 mg/dL Borderline high: 130-159 mg/dL High: >160 mg/dL Calculated using the Wooten LDL-C estimating equation. This equation was implemented on 2024. Prior to this date LDL-C was estimated using the Friedewald equation. Literature References: 1. Expert Panel on Integrated Guidelines for Cardiovascular Health and Risk Reduction in Children and Adolescents. Pediatrics 2011;128:S213 2. NCEP Expert Panel. Circulation 2004;110:227 3. Je M et al. DOMI Cardiol. 2019March 23;5(5):540-548. doi: 10.1001/jamacardio.2020.0013 Current Interpretive Data was last revised on 2024. Non-HDL Cholesterol 103 mg/dL [facility] Comment: Interpretive Data Ages < or = 19 years Acceptable: <120 mg/dL Borderline high: 120-144 mg/dL High: >145 mg/dL Ages > or = 20 years When triglycerides are >200 mg/dL, Non-HDL cholesterol is a secondary target of therapy with treatment goals that are 30 mg/dL greater than the LDL cholesterol target. Literature References: 1. Expert Panel on Integrated Guidelines for Cardiovascular Health and Risk Reduction in Children and Adolescents. Pediatrics 2011;128:S213 2. NCEP Expert Panel. Circulation 2004;110:227 Current Interpretive Data was last revised on 2018. Chol/HDL ratio 2 [facility] Blood 04/28/2025 8:11 AM CDT 04/28/2025 2:48 PM CDT Nabil Chacon MD LAB BLOOD ORDERABLES Final Result [facility] [address] Department [place] [address] * Comprehensive metabolic panel (04/28/2025 8:11 AM CDT) Sodium 139 135 - 145 mmol/L Potassium, pl 4.6 3.3 - 4.9 mmol/L [facility] Chloride 104 97 - 110 mmol/L [facility] CO2 25 22 - 32 mmol/L [facility] Anion gap 10 2 - 15 mmol/L [facility] BUN 16 6 - 25 mg/dL [facility] Creatinine 0.72 0.60 - 1.10 mg/dL [facility] Glucose 94 70 - 199 mg/dL [facility] Comment: Interpretive Data Fasting glucose >/= 126 mg/dl is diagnostic for diabetes. Fasting is defined as no caloric intake for at least 8 hours. Fasting glucose between 100 mg/dl to 125 mg/dl is diagnostic of prediabetes. In a patient with classic symptoms of hyperglycemia or hyperglycemic crisis, a random glucose >/= 200 mg/dl is diagnostic for diabetes. In the absence of unequivocal hyperglycemia, results should be confirmed by repeat testing. The classification and Diagnosis of Diabetes Diabetes Care 2021; 46: S19-S40. Current interpretive data was last revised 2022. Calcium 9.0 8.5 - 10.3 mg/dL [facility] Bilirubin, total 0.4 0.1 - 1.2 mg/dL [facility] Protein, pl 7.2 6.5 - 8.5 g/dL [facility] Albumin 4.4 3.5 - 5.0 g/dL [facility] Alk phos 96 40 - 130 Units/L [facility] ALT 17 7 - 45 Units/L [facility] AST 26 10 - 45 Units/L [facility] Blood 04/28/2025 8:11 AM CDT 04/28/2025 2:48 PM CDT Nabil Chacon MD LAB BLOOD ORDERABLES Final Result [facility] [address] Department [place] [address] * HM MAMMOGRAPHY (07/08/2024 2:11 PM CDT) Mammography Normal Historical Provider HEALTH MAINTENANCE Final Result * Hepatitis C antibody Blood (03/02/2024 12:00 AM CDT) Hep C Ab Nonreactive Nonreactive Comment: Interpretive Data Nonreactive: Antibodies to HCV not detected. Does NOT exclude the possibility of recent exposure to HCV. Equivocal: Equivocal for HCV antibodies. Supplemental molecular testing will be automatically performed to determine infection status in accordance with current CDC screening recommendations. Reactive: Positive for HCV antibodies. This may represent current or past HCV infection. Supplemental molecular testing will be automatically performed to determine current infection status in accordance with current CDC screening recommendations. Interpretive data was last revised on 2020. Blood 03/02/2024 03/02/2024 3:5 0 PM CDT Nabil Chacon MD LAB MICROBIOLOGY - GENERAL ORDERABLES Final Result Performing Organization Address City/State/ZIP Co mi Phone Number [facility] [address] Department [place] [address] * PAP SMEAR WITH HPV (08/25/2018) Scribed Pap Smear w/HPV Unknown Historical Provider HEALTH MAINTENANCE Final Result from Last 3 Months or Most Recently Relevant to [place] [address] [facility] [place] [address] [facility] [address] [employer] Care Teams Diagnostics Tech Relationship Specialty Start Date End Date Nabil Chacon MD [address] [place] [address] PCP - General Family Medicine 01/09/22 Manoj Cr MD [address] [place] [address] Referring Physician Obstetrics and Gynecology 02/24/23 Mo Edmond DPM [address] [id number] Consulting Physician Foot and Ankle Surg 02/24/23 Mlidred Gutierrez PA [address] [place] [address] Physician Outreach Worker Physician Outreach Worker 04/27/25
--- OUTSIDE RECORDS SUMMARY | 2025-07-27 08:39 | XMS_ITS | Encounter Summary ---
Author Organization [facility] Healthcare Address [address] [place] [address] Care Team Providers Care Tank Welder Name Role Phone Nabil Chacon MD Primary Care Provider [phone] Manoj Cr MD Unavailable [phone] Mo EdmondM Unavailable [phone] Mildred Gutierrez Unavailable Encounter Details Date Type Department Care Team (Late st Contact Info) Description 12/26/2024 E-Visit [facility] Medical [facility] Primary Care at [address] [address] Nabil Chacon MD [address] [place] [address] [address] [place] [address] Tamiflu request Social History Tobacco Use Types Packs/Day Years Used Date Smoking Tobacco: Never Smokeless Tobacco: Never Alcohol Use Standard Drinks/Week Comments Yes 0 [...] points, staff should administer the PHQ-9) 0 03/02/2024 Exercise Vital Sign Answer Date Recorde d [...] on file Legal Sex Female 1:36 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 Gender Identity Not on file Sexual Orientation Not on file 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 Non-Emergent. Is this a new or reoccurring symptom(s)? new What have you tried to help your symptom(s)? Ibuprofen and tylenol (helps with fever) Why was appointment not scheduled? Patient seeking care without an appointment; appointment was offered by [facility]. Additional Comments: Patient following up on [employer]t message. Doesn't want to miss window for Tamiflu to work. Open to anything else if it will help. [facility]. Does message need to be routed? Yes-Action Needed STITCH WAISTBAND SETTER documented in this encounter Plan of Treatment Not on file documented as of this encounter Visit Diagnoses Diagnosis Flu-like symptoms- Primary documented in this encounter Care Teams Tank Welder Relationship Specialty Start Date End Date Nabil Chacon MD [address] [place] [address] PCP - General Family Medicine 01/09/22 Manoj Cr MD [address] [facility] [address] [place] [address] Referring Physician Obstetrics and Gynecology 02/24/23 Mo Edmond DPM [address] [facility] [address] [place] [address] Consulting Physician Foot and Ankle Surg 02/24/23 Mildred Gutierrez PA [address] [place] [address] Physician Chief Design Branch Physician Chief Design Branch 04/27/25 documented as of this encounter
--- OUTSIDE RECORDS SUMMARY | 2025-07-27 08:39 | XMS_ITS | Encounter Summary ---
Author Organization [facility] Address [address] [place] [address] Care Team Providers Care Corporate Attorney Name Role Phone Sharon Quintero Earnestine Primary Care Provider [phone] Reason for Visit * Reason Onset Date Comments Feeding Problem 05/25/2017 Encounter Details Date Type Department Care Team (Late st Contact Info) Description 05/25/2017 Telephone [facility] Mother/Baby [address] [place] [address] Khushboo Saleem Feeding Problem Social History Tobacco Use Types Packs/Day Years Used Date Smoking Tobacco: Never Smokeless Tobacco: Never Alcohol Use Standard Drinks/Week Comments No 0 (1 standard drink = 0.6 oz pur e alcohol) Comments No Sex and Gender Information Value Date Recorded Sex Assigned at Not on file Legal Sex Female 5:57 AM FITTER ARMAMENT Gender Identity Not on file Sexual Orientation Not on file Occupation Industry Job Start Date Job End Date Not on file Not on file Not on file Not on file documented as of this encounter Miscellaneous Notes * Telephone Encounter - Khushboo Saleem - 05/25/2017 5:13 PM CDT Baby is three days old. Mom can no longer express colostrum. Breasts are getting achy. She's begun giving formula Encouraged mom to use cold compresses and massage to relieve swelling and get colostrum/milk flowing again. Pump breasts to stimulate milk production if formula is given. Continue feeding baby on cue. Monitor output. documented in this encounter Plan of Treatment Not on file documented as of this encounter Visit Diagnoses Not on filedocumented in this encounter Care Teams Corporate Attorney Relationship Specialty Start Date End Date Sharon Quintero DO PCP - General Internal Medicine 01/14/13 documented as of this encounter
== END 2025-07-27 08:34 | disposition home or self-care (01) ==
LOC: ANHFOHIMG 08:35
PROVIDERS: PCP Family Medicine; Visit Provider Family Medicine
DX: Z12.31 Encounter for screening mammogram for malignant neoplasm of breast (principal)
CPT/HCPCS: 77063; 77067